=== PATIENT | male | born 1940 | race Caucasian/White ===

== ENCOUNTER → 2016-06-27 | Day surgery (SDC) | payer MEDICARE, BC ==
[~2016-06-27] MED LIST: ALPHAGAN P10 ML OP; ALPRAZOLAM PO; AMITIZA24 MCG PO; AMITRYPTYLINE PO; CALCIUM + D 6001 TA1 PO; COSOPT EYE DROPS5 ML OP; COSOPT PF EYE1 EACH OD; COSOPT1 UNI1; EYE VIT PO; HYDROCODONE PO; LISINOPRIL10 MG PO; LORTAB 10-3251 EACH PO; LORTAB 10/500 T1 TAB PO; LORTAB 7.5-5001 TAB PO; LUMIGAN; LUMIGAN2.5 ML OD; MORPHINE SULFAT30 M3 PO; MORPHINE SULFAT60 MG PO; NABUMETONE PO; NEURONTIN PO; ORAMORPH SR60 MG PO; OXYCONTIN PO; PERCOCET 5-3251 TAB PO; PERCOCET PO; PHENERGAN25 M1 PO; PHENERGAN25 MG PO; RELAFEN500 MG PO; SYNTHROID0.1 MG PO; SYNTHROID0.15 MG PO; SYNTHROID137 MCG PO; TEMAZEPAM PO; TRAVATAN Z5 ML OD; TRAZODONE HCL100 MG PO; VITA EYES PO; VITEYES; XANAX0.5 M1 PO; XANAX0.5 MG PO; ZESTRIL10 MG PO; ZOCOR20 MG PO; [UNRECOGNIZED DRUG - OTHER]; [UNRECOGNIZED DRUG - OTHER] AU
--- NOTE | ~2016-06-27 | OR ---
Unit #: [id number] #: [id number] Patient: JOE DAVIDSON [id number] [address] [place], [place] [address] [id number] O MR#: [id number] NAME: JOE DAVIDSON. ROOM: Date of Procedure: 06/27/2016 Admission Date: 06/27/2016 Surgeon: Fuad Denton M.D. : 1940 Attending Physician: Fuad Denton M.D. Referring Physician: Fuad Denton M.D. Primary Care Physician: Gustabo Woo M.D. OPERATIVE REPORT PREOPERATIVE DIAGNOSIS Retroperitoneal abdominal tumor. 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 PROCEDURES PERFORMED 1. Diagnostic laparoscopy. 2. Laparotomy with multiple Messi-Cut needle biopsy of abdominal retroperitoneal tumor. ANESTHESIA General anesthesia. ESTIMATED BLOOD LOSS Minimal. IV FLUIDS 500 crystalloid. COMPLICATIONS None. INDICATIONS FOR PROCEDURE The patient is a 76-year-old gentleman, who presents with CT scan showing a retroperitoneal tumor. He presents for attempted excision versus biopsies. DESCRIPTION OF PROCEDURE The patient was taken to the operating theater and placed in supine position. General anesthesia was induced. The abdomen was prepped and draped. A 5-mm Optiview trocar was placed in left upper quadrant without difficulty. The abdomen was insufflated to 15 mmHg with CO2. I then placed another 5 mm port. General inspection the abdomen revealed no gross abnormalities. I tried to run the small intestine and did not identify the neoplastic lesions. The colon appeared normal other than some diverticula. I elected to make a midline incision, which we did approximately 10 cm in length. I was able to palpate the tumor, which was not free floating in the mesentery, but appeared to be adhered to the great vessels at the root of the small bowel mesentery. I found the tumor appeared to be fibrotic, but did not appear to have metastatic lesions. I Unit #: [id number] #: [id number] Patient: JOE DAVIDSON took core biopsies, the first of which bled somewhat likely secondary to proximity to the vessels. I placed a 3-0 Prolene and gained hemodynamic control. Frozen section revealed fibrotic tumor possible just origin. I then gathered 6 to 7 other core biopsy specimens for permanent section. Hemostasis was adequate. I saw no other abnormalities within the abdomen. I closed with #1 Vicryl and rome to the skin. The patient tolerated the procedure well and sent to the recovery room in good condition. Dictated by... Fuad Denton M.D. RACHAEL/jered TD: 06/27/2016 16:28 JOB #: [id number] OPERATIVE REPORT X Fuad Denton MD X PROCEDURE OPERATIVE NOTE
== END | disposition home or self-care (01) ==
LOC: CSUR 05:38
DX: D49.0 Neoplasm of unspecified behavior of digestive system (principal); I10 Essential (primary) hypertension; E03.9 Hypothyroidism, unspecified; M19.90 Unspecified osteoarthritis, unspecified site; Z79.899 Other long term (current) drug therapy; Z90.89 Acquired absence of other organs; Z98.52 Vasectomy status; Z98.890 Other specified postprocedural states
CPT/HCPCS: 88305; 88331; J1170; J2250; J2405; J3010

== ENCOUNTER → 2016-11-18 | Day surgery (SDC) | payer MEDICARE, BC ==
--- NOTE | ~2016-11-18 | OR ---
Unit #: [id number] #: [id number] Patient: JOE DAVIDSON [id number] [address] [address] [id number] O MR#: [id number] NAME: JOE DAVIDSON ROOM: Date of Procedure: 11/18/2016 Admission Date: 11/18/2016 Surgeon: Carlo Doherty M.D. : 1940 Attending Physician: Carlo Doherty M.D. Primary Care Physician: Gustabo Woo M.D. OPERATIVE REPORT PREOPERATIVE DIAGNOSES Back pain, degenerative lumbar facet disease. POSTOPERATIVE DIAGNOSIS Back pain, degenerative lumbar facet disease. PROCEDURE PERFORMED Lumbar facet injection x2 levels with fluoroscopic guidance for needle localization. INDICATIONS FOR PROCEDURE The patient is a 76-year-old male with chronic back pain issues, which is failed other attempts at rehabilitative conservative treatment. He is not a surgical candidate. Epidural steroids helped, but did not last. He does have significant facet disease bilaterally at L4-L5 and L5-S1 levels. Plan is for trial of diagnostic and therapeutic facet injections to see a component of the pain associated with this issue. DESCRIPTION OF PROCEDURE The patient was placed in a prone position. Standard monitors were applied. Sterile prep and drape of the lumbosacral area was performed. Fluoroscopy was then used to identify the left L5-S1 and L4-L5 facet joints. The skin overlying this localized with 1% lidocaine. At these levels, a 22-gauge Quincke point spinal needle was advanced with fluoroscopic guidance to bring the needle tip within the edge of the respective facet joints. This was confirmed with fluoroscopy. A dose of 1 mL of a mixture of 80 mg of Depo-Medrol and 3 mL of 0.25% bupivacaine were deposited. The needles were flushed and removed. The exact same procedure was then repeated on the right at the L4-L5 and L5-S1 levels. Again after confirming proper positioning with fluoroscopy, a dose of 1 mL of the previously mentioned mixture of Depo-Medrol and Marcaine was deposited. The patient otherwise tolerated the procedure well and was discharged to the recovery room in stable condition. Dictated by... Carlo Doherty M.D. LHP/jered Unit #: [id number] #: [id number] Patient: JOE DAVIDSON TD: 11/18/2016 14:26 JOB #: [id number] OPERATIVE REPORT Page 1 of 1 X Carlo Doherty MD X PROCEDURE OPERATIVE NOTE
== END | disposition home or self-care (01) ==
LOC: CCSC 07:35
DX: G89.29 Other chronic pain (principal); M47.26 Other spondylosis with radiculopathy, lumbar region; M53.86 Other specified dorsopathies, lumbar region; Z79.891 Long term (current) use of opiate analgesic; Z79.899 Other long term (current) drug therapy
CPT/HCPCS: J1040; J2250